=== PATIENT | female | born 1945 | race Hispanic/Latino ===

== ENCOUNTER → 2024-09-10 | Outpatient (REF) | payer MEDICARE | LOC: RAD 08:14 | PROVIDERS: ATTEND Student in an Organized Health Care Education/Training Program | DX: R07.82 Intercostal pain (principal); R05.2 Subacute cough | CPT/HCPCS: 71111 ==

== ENCOUNTER → 2025-05-20 | Day surgery (SDC) | payer MEDICARE ==
[2025-05-15 11:04] LABS: BASOPHILS % 0.5 % (0.0-1.0); EOSINOPHILS # (AUTO) 0.1 (0.0-0.4); EOSINOPHILS % 1.9 % (0.0-6.0); HEMATOCRIT 31.6 % (34.2-44.1); HEMOGLOBIN 10.6 g/dL (12.0-16.0); LYMPHOCYTES # (AUTO) 2.6 (1.0-3.2); LYMPHOCYTES % 40.8 % (18.0-39.1); MEAN CORPUSCULAR HEMOGLOBIN 32.6 pg (28-32); MEAN CORPUSCULAR HGB CONC 33.5 g/dL (31-35); MEAN CORPUSCULAR VOLUME 97.2 fL (81-99); MONOCYTES # (AUTO) 0.6 (0.2-0.8); MONOCYTES % 9.5 % (4.4-11.3); NEUTROPHILS % 46.8 % (38.7-80.0); PLATELET COUNT 244 x10e3/uL (140-360); RED BLOOD COUNT 3.25 x10e6/uL (3.6-5.1); RED CELL DISTRIBUTION WIDTH 12.4 % (11.7-14.4)
[~2025-05-20] MED LIST: AMLODIPINE BESY10 MG PO; BENICAR20 MG PO; CLONIDINE HCL0.1 MG PO; IRON325 M1 PO; MAGNESIUM500 MG PO; METFORMIN HCL500 MG PO; OMEGA 3 1,0001 EACH PO; ROSUVASTATIN CA10 MG PO; VITAMIN B121000 MCG PO; VITAMIN C500 M6 PO; VITAMIN D310 MCG PO
[2025-05-20] MEDS: LACTATED RINGER'S 1,000 ML ONE (09:24)
[2025-05-20 12:35] VITALS: TEMP 97.2
[2025-05-20 13:05] VITALS: BP 130/76; PULSE 73; RESP 18; O2SAT 99
[2025-05-20 13:54] LABS: CDIFF AG QUIK CHEK NEGATIVE (NEGATIVE); CDIFF TOX QUIK CHEK NEGATIVE (NEGATIVE)
[2025-05-23 07:13] LABS: ENDOMYSIAL ANTIBODIES, IGA Negative (Negative)
[2025-05-23 10:16] LABS: IMMUNOGLOBULIN A 197 mg/dL (64-422); TISSUE TRANSGLUTAMINASE IGA AB <2 U/mL (0-3)
== END | disposition home or self-care (01) ==
LOC: OR 05-15 10:32
PROVIDERS: ATTEND Internal Medicine Gastroenterology
DX: Z12.11 Encounter for screening for malignant neoplasm of colon (principal); K22.2 Esophageal obstruction; K29.50 Unspecified chronic gastritis without bleeding; K21.00 Gastro-esophageal reflux disease with esophagitis, without bleeding; K52.89 Other specified noninfective gastroenteritis and colitis; K62.89 Other specified diseases of anus and rectum; K64.8 Other hemorrhoids; Z86.0100 Personal history of colon polyps, unspecified; Z01.810 Encounter for preprocedural cardiovascular examination; Z80.0 Family history of malignant neoplasm of digestive organs; I10 Essential (primary) hypertension; D50.8 Other iron deficiency anemias; Z79.84 Long term (current) use of oral hypoglycemic drugs; Z79.899 Other long term (current) drug therapy
CPT/HCPCS: 36415 ×2; 43239; 43450; 45380; 82784; 82948; 83516; 83630; 83993; 85025; 86256; 87045; 87177; 87324; 87328; 87449; 93005; J2470; J7121; 45378

== ENCOUNTER → 2025-06-25 | Outpatient (REF) | payer MEDICARE | LOC: DX 07:57 | PROVIDERS: ATTEND Nurse Practitioner | DX: D50.8 Other iron deficiency anemias (principal) | CPT/HCPCS: 74250 ==